=== PATIENT | female | born 1965 | race Caucasian/White ===

== ENCOUNTER 2019-08-15 16:43 | Emergency (ER) | payer BC ==
[2019-08-15 16:59] VITALS: BP 120/73
[2019-08-15] MEDS ORDERED: Bupivacaine 0.25% SDV* 30 ML INJ ONE (17:05)
[2019-08-15] MEDS ORDERED: Lidocaine 1% MPF* 2 ML VIAL INJ ONE (17:12)
[2019-08-15] MEDS ORDERED: Lidocaine 2% PF * 5 ML VIAL INJ ONE (17:17)
--- NOTE | 2019-08-15 17:54 | ED ---
Laceration/Wound HPI - HPI Summary HPI Summary: 54 yo WF p/w right thenar eminence laceration tripped on a step, and landed on a sharp edge of a toy truck, wound is deep , bleeding - History of Current Complaint Stated Complaint: RIGHT HAND LACERATION Time Seen by Provider: 08/15/19 16:49 Hx Obtained From: Patient Hx Last Menstrual Period: unknown Onset/Duration: Sudden Onset Aggravating: Nothing Alleviating: Nothing Onset Severity: Moderate Pain Intensity: 3 - Allergy/Home Medications Allergies/Adverse Reactions: Allergies Allergy/AdvReac Type Severity Reaction Status Date / Time No Known Allergies Allergy Verified 08/15/19 16:49 Home Medications: Home Medications Ibuprofen TAB* [Advil TAB*] 800 mg PO Q6H PRN 05/24/12 [History Confirmed ] Acetaminophen [Acetaminophen Extra Strength] 1,000 mg PO ONCE PRN 08/15/19 [ History Confirmed 08/15/19] Cephalexin CAP* [Keflex CAP*] 500 mg PO TID 7 Days #21 cap 08/15/19 [Rx] Cholecalciferol TAB* [Vitamin D TAB*] 1,000 unit PO DAILY 08/15/19 [History Confirmed 08/15/19] Levonorgestrel (Iud) [Mirena IUD] 20 mcg IU ONCE 08/15/19 [History Confirmed ] PMH/Surg Hx/FS Hx/Imm Hx Previously Healthy: Yes - Surgical History Surgery Procedure, Year, and Place: lympoma removed behind L ear Infectious Disease History: No Infectious Disease History: Denies: Traveled Outside the [place] in Last 30 Days - Social History Alcohol Use: Occasionally Substance Use Type: Reports: None Smoking Status (MU): Never Smoked Tobacco Review of Systems Constitutional: Negative Eyes: Negative ENT: Negative Cardiovascular: Negative Respiratory: Negative Gastrointestinal: Negative Genitourinary: Negative Musculoskeletal: Negative Skin: Other Positive: Other - laceration on right hand Neurological/Mental Status: Negative Positive: Slurred Speech Positive: Anxious All Other Systems Reviewed And Are Negative: Yes Physical Exam - Summary Physical Exam Summary: Vital Signs Reviewed: Yes Appearance: Positive: No Pain Distress Skin: Positive: Warm, right thenar eminence laceration size about 3.2cm with come subcut tissue exposure, no motor or sensory deficit, NVI Head/Face: Positive: Normal Head/Face Inspection Eyes: Positive: Normal ENT: Positive: Normal ENT inspection Dental: Negative: Cervical Lymphadenopathy Neck: Positive: Supple Respiratory/Lung Sounds: Positive: Clear to Auscultation Cardiovascular: Positive: Normal, RRR, S1, S2 Abdomen Description: Positive: Nontender Musculoskeletal: Positive: Normal Neurological: Positive: Normal Psychiatric: Positive: Normal Triage Information Reviewed: Yes Vital Signs On Initial Exam: Initial Vitals Temp Pulse Resp BP Pulse Ox 37.2 C 69 17 120/73 99 08/15/19 16:51 08/15/19 16:51 08/15/19 16:51 08/15/19 16:51 08/15/19 16:51 Vital Signs Reviewed: Yes Procedures - Laceration/Wound Repair 1 Location: Other - right thenar emience Description: Linear Betadine Prep?: No Laceration/Wound Explored: clean Closure: Multilayer Debridement: moderate Suture Type: Prolene, Vicryl Layer Closure?: Yes - 3 vicryl sutures, 12 prolene skin sutures placed Sterile Dressing Applied?: Yes Diagnostics - Vital Signs Vital Signs Temp Pulse Resp BP Pulse Ox 08/15/19 16:51 37.2 C 69 17 120/73 99 - Laboratory Lab Statement: Any lab studies that have been ordered have been reviewed, and results considered in the medical decision making process. Laceration Repair Course/Dx - Course Assessment/Plan: 3 subcut sutures (vicryl) and 12 superficial (prolene) sutures placed - Clinical Impression Provider Diagnoses: Laceration of hand without complication, excluding fingers - Critical Care Time Critical Care Statement: Critical care time is provided exclusive of any time spent performing procedures. Discharge ED - Sign-Out/Discharge Documenting (check all that apply): Patient Departure All imaging exams completed and their final reports reviewed: No Studies - Discharge Plan Condition: Stable Disposition: HOME Prescriptions: Cephalexin CAP* [Keflex CAP*] 500 mg PO TID 7 Days #21 cap Patient Education Materials: Care For Your Stitches (ED) Referrals: Dirk Lua MD [Primary Care Provider] - Additional Instructions: please return in 2 days for a wound check - Billing Disposition and Condition Condition: STABLE Disposition: Home
[2019-08-15] MEDS ORDERED: Cephalexin CAP* 500 MG PO ONE (18:07)
== END 2019-08-15 18:18 | disposition home or self-care (01) ==
LOC: UCCORT 16:43
DX: S61.411A Laceration without foreign body of right hand, initial encounter (principal); W01.198A Fall on same level from slipping, tripping and stumbling with subsequent striking against other object, initial encounter; Y92.9 Unspecified place or not applicable
CPT/HCPCS: 12002; 99212; A9270-GY; G0463

== ENCOUNTER 2019-08-17 08:47 | Emergency (ER) | payer BC ==
[2019-08-17 08:58] VITALS: BP 119/62
--- NOTE | 2019-08-17 09:13 | UC ---
HPI Wound/Suture Re-check - HPI Summary HPI Summary: laceration right hand x 3 days here for wound check . 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 and claims her job does not have light duty work program - History Of Current Complaint Chief Complaint: UCLaceration Stated Complaint: STITCH REMOVAL Time Seen by Provider: 08/17/19 08:58 Hx Obtained From: Patient Hx Last Menstrual Period: unknown Onset/Duration: Gradual Onset, Lasting Days - 3, Still Present Severity: Moderate Pain Intensity: 0 Surgery Date: 08/15/19 Hands: 1 - 3 cm laceration of the right palm - Allergies/Home Medications Allergies/Adverse Reactions: Allergies Allergy/AdvReac Type Severity Reaction Status Date / Time No Known Allergies Allergy Verified 08/17/19 08:58 Home Medications: Home Medications Ibuprofen TAB* [Advil TAB*] 800 mg PO Q6H PRN 05/24/12 [History Confirmed ] Acetaminophen [Acetaminophen Extra Strength] 1,000 mg PO ONCE PRN 08/15/19 [ History Confirmed 08/17/19] Cephalexin CAP* [Keflex CAP*] 500 mg PO TID 7 Days #21 cap 08/15/19 [Rx Confirmed 08/17/19] Cholecalciferol TAB* [Vitamin D TAB*] 1,000 unit PO DAILY 08/15/19 [History Confirmed 08/17/19] Levonorgestrel (Iud) [Mirena IUD] 20 mcg IU ONCE 08/15/19 [History Confirmed ] PMH/Surg Hx/FS Hx/Imm Hx Previously Healthy: Yes - Surgical History Surgical History: Yes Surgery Procedure, Year, and Place: lympoma removed behind L ear - Family History Known Family History: Positive: Non-Contributory - Social History Alcohol Use: Occasionally Substance Use Type: None Smoking Status (MU): Never Smoked Tobacco - Immunization History Most Recent Tetanus Shot: 3-5 years ago Review of Systems All Other Systems Reviewed And Are Negative: Yes Is Patient Immunocompromised?: No Physical Exam Triage Information Reviewed: Yes Appearance: Well-Appearing, No Pain Distress, Well-Nourished Vital Signs: Initial Vital Signs Temp 97.6 F 08/17/19 08:53 Pulse 57 08/17/19 08:53 Resp 16 08/17/19 08:53 BP 119/62 08/17/19 08:53 Pulse Ox 100 08/17/19 08:53 Vital Signs Reviewed: Yes Eye Exam: Normal Eyes: Positive: Conjunctiva Clear ENT: Positive: Normal ENT inspection, Hearing grossly normal, Pharynx normal Neck: Positive: Supple, Nontender, No Lymphadenopathy Respiratory: Positive: Chest non-tender, Lungs clear, Normal breath sounds Cardiovascular: Positive: RRR, No Murmur, Pulses Normal Musculoskeletal Exam: Normal Skin: Positive: Other - 3 cm laceratio palm of right hand , wound is healing well, sutures are intact, no erythema, no discharge, no bleeding, no swelling, good ROM of the right hand Course/Dx - Diagnosis Provider Diagnosis: Laceration of right hand, Encounter for re-check of laceration wound Discharge ED - Sign-Out/Discharge Documenting (check all that apply): Patient Departure All imaging exams completed and their final reports reviewed: No Studies - Discharge Plan Condition: Stable Disposition: HOME Patient Education Materials: Laceration (ED) Forms: *Work Release Referrals: Dirk Lua MD [Primary Care Provider] - 7 Days - Billing Disposition and Condition Condition: STABLE Disposition: Home
== END 2019-08-17 09:17 | disposition home or self-care (01) ==
LOC: UCCORT 08:47
DX: S61.411D Laceration without foreign body of right hand, subsequent encounter (principal); W45.8XXD Other foreign body or object entering through skin, subsequent encounter
CPT/HCPCS: 99211; G0463